=== PATIENT | male | born 1930 | race Caucasian/White ===

== ENCOUNTER 2017-07-02 07:44 | Emergency (ER) | payer MEDICARE, BC ==
[~2017-07-02] VITALS: Ht 177.8 cm; Wt 121.6 kg
[~2017-07-02 07:44] MED LIST: ANTI-FUNGAL12 TOP; ASPIRIN EC325 MG PO; CARTIA XT120 MG/24 PO; FISH OIL1000 MG PO; FLOMAX0.4 M1 PO; HYDROCHLOROT12.5 M1 PO; IRON 100 PLUS PO; LIPITOR20 MG PO; MULT VITAMI1; OCUVITE EYE PO; TYLENOL 8 HR650 MG; ULTRAM50 MG OR; VITAMI16; [UNRECOGNIZED DRUG - OTHER] PO; [UNRECOGNIZED DRUG - OTHER] PO
[2017-07-02] MEDS ORDERED: VITAMIN E400 UNIT PO (08:28)
[2017-07-02] MEDS ORDERED: FERR SULFATE325 MG PO (08:29)
[2017-07-02 09:14] LABS: URINE BILIRUBIN - DIPSTICK NEGATIVE (NEGATIVE); URINE BLOOD DIPSTICK TRACE-LYSED (NEGATIVE); URINE COLOR YELLOW; URINE GLUCOSE - DIPSTICK NEGATIVE (NEGATIVE); URINE KETONE NEGATIVE (NEGATIVE); URINE PROTEIN - DIPSTICK NEGATIVE (NEG-TRACE); URINE UROBILINOGEN - DIPSTICK 0.2 E.U./dL (0.2)
[2017-07-02 09:19] LABS: URINE CLARITY CLOUDY; URINE LEUK ESTERASE LARGE (NEGATIVE); URINE NITRITE - DIPSTICK POSITIVE (Negative)
[2017-07-02 09:20] LABS: URINE BACTERIA MANY hpf; URINE EPITHELIAL CELLS MODERATE EPI/hpf (0-FEW); URINE MUCUS MODERATE hpf (NONE-FEW); URINE RBC 0-2 RBC/hpf (0-5); URINE WBC 20-50 WBC/hpf (0-5)
[2017-07-02] MEDS ORDERED: BACTRIM DS1 TAB PO (09:38)
[2017-07-02 09:48] VITALS: BP 149/65
== END 2017-07-02 09:55 | disposition home or self-care (01) ==
LOC: ED 07:44
PROVIDERS: Family Medicine
PROC: 0T9B70Z Drainage of Bladder with Drainage Device, Via Natural or Artificial Opening (ICD-10-PCS; principal; 2017-07-02)
DX: R33.9 Retention of urine, unspecified (principal); N39.0 Urinary tract infection, site not specified; B96.20 Unspecified Escherichia coli [E. coli] as the cause of diseases classified elsewhere; Z85.46 Personal history of malignant neoplasm of prostate; N48.89 Other specified disorders of penis

== ENCOUNTER 2017-07-07 16:28 | Inpatient (IN) | payer MEDICARE, BC ==
[~2017-07-07] VITALS: Ht 177.8 cm; Wt 113.0 kg
[~2017-07-07 16:28] MED LIST changes: +BACTRIM DS1 TAB PO; +FERR SULFATE325 MG PO; +VITAMIN E400 UNIT PO
[2017-07-07 17:19] LABS: HEMATOCRIT 32.1 % (39.0-50.0); HEMOGLOBIN 10.2 g/dl (14.0-18.0); IMMATURE GRANULOCYTES 0.3 % (0.0-1.0); MEAN CELL VOLUME 88.4 fL CALC (80.0-100.0); MEAN CORPUSCULAR HGB 28.1 pG CALC (26.0-32.0); MEAN CORPUSCULAR HGB CONC 31.8 g/L CALC (32.0-36.0); NEUT# 2.4 thou/uL (1.82-7.42); RED BLOOD COUNT 3.63 mill/uL (4.70-6.10); RED CELL DISTRI WIDTH 14.1 % (11.5-15.5)
[2017-07-07 17:33] LABS: CREATININE 1.5 mg/dL (0.7-1.3); POTASSIUM 4.8 mmol/l (3.5-5.1)
[2017-07-07 17:56] LABS: URINE BLOOD DIPSTICK LARGE (NEGATIVE); URINE COLOR BROWN; URINE GLUCOSE - DIPSTICK NEGATIVE (NEGATIVE); URINE KETONE 15 mg/dL (NEGATIVE); URINE PH 6.5 (4.5-8.0); URINE PROTEIN - DIPSTICK >=300 mg/dL (NEG-TRACE); URINE SPECIFIC GRAVITY 1.025
[2017-07-07 17:58] LABS: URINE BILIRUBIN - DIPSTICK NEGATIVE (NEGATIVE); URINE CLARITY TURBID; URINE LEUK ESTERASE SMALL (NEGATIVE); URINE NITRITE - DIPSTICK POSITIVE (Negative)
[2017-07-07 17:59] LABS: URINE RBC TNTC RBC/hpf (0-5)
[2017-07-07 20:25] LABS: CREATININE 1.4 mg/dL (0.7-1.3)
[2017-07-07 20:30] VITALS: BP 159/84
[2017-07-08] VITALS: BP 105/56
[2017-07-08 04:54] VITALS: BP 147/73
[2017-07-08 06:06] LABS: HEMOGLOBIN 10.3 g/dl (14.0-18.0); MEAN CELL VOLUME 87.9 fL CALC (80.0-100.0); MEAN CORPUSCULAR HGB 28.3 pG CALC (26.0-32.0); MEAN CORPUSCULAR HGB CONC 32.2 g/L CALC (32.0-36.0); RED BLOOD COUNT 3.64 mill/uL (4.70-6.10)
[2017-07-08 06:07] LABS: ANION GAP 14 (6-22 (CALC)); BUN 26 mg/dL (8-23); BUN/CREATININE RATIO 21 (12-20 (CALC)); CARBON DIOXIDE 23 mmol/l (22-30); CHLORIDE 93 mmol/l (95-108); CREATININE 1.3 mg/dL (0.7-1.3); GFR 52 ML/MIN (>=60 (CALC)); GFR FOR AFR.AMER. > 60 ML/MIN (>=60 (CALC)); POTASSIUM 4.7 mmol/l (3.5-5.1); SODIUM 125 mmol/l (137-146)
[2017-07-08 08:40] VITALS: BP 157/88
[2017-07-08 16:00] VITALS: BP 143/77
[2017-07-08 19:10] VITALS: BP 159/97
[2017-07-08 22:28] LABS: ANION GAP 13 (6-22 (CALC)); BUN 23 mg/dL (8-23); BUN/CREATININE RATIO 20 (12-20 (CALC)); CARBON DIOXIDE 28 mmol/l (22-30); CHLORIDE 87 mmol/l (95-108); CREATININE 1.2 mg/dL (0.7-1.3); GFR 57 ML/MIN (>=60 (CALC)); GFR FOR AFR.AMER. > 60 ML/MIN (>=60 (CALC)); POTASSIUM 4.6 mmol/l (3.5-5.1); SODIUM 123 mmol/l (137-146)
[2017-07-09] VITALS: BP 151/86
[2017-07-09 04:35] VITALS: BP 137/81
[2017-07-09 05:50] LABS: HEMATOCRIT 31.9 % (39.0-50.0); HEMOGLOBIN 10.3 g/dl (14.0-18.0); IMMATURE GRANULOCYTES 0.3 % (0.0-1.0); MEAN CELL VOLUME 87.9 fL CALC (80.0-100.0); MEAN CORPUSCULAR HGB 28.4 pG CALC (26.0-32.0); MEAN CORPUSCULAR HGB CONC 32.3 g/L CALC (32.0-36.0); NEUT# 5.16 thou/uL (1.82-7.42); RED BLOOD COUNT 3.63 mill/uL (4.70-6.10); RED CELL DISTRI WIDTH 13.9 % (11.5-15.5)
[2017-07-09 06:00] LABS: ANION GAP 13 (6-22 (CALC)); BUN 24 mg/dL (8-23); BUN/CREATININE RATIO 22 (12-20 (CALC)); CARBON DIOXIDE 27 mmol/l (22-30); CHLORIDE 88 mmol/l (95-108); CREATININE 1.1 mg/dL (0.7-1.3); GFR > 60 ML/MIN (>=60 (CALC)); GFR FOR AFR.AMER. > 60 ML/MIN (>=60 (CALC)); MAGNESIUM 1.9 mg/dL (1.6-2.3); POTASSIUM 4.6 mmol/l (3.5-5.1); SODIUM 124 mmol/l (137-146)
[2017-07-09 08:00] VITALS: BP 129/75
[2017-07-09 11:08] VITALS: BP 133/68
[2017-07-09 14:57] VITALS: BP 131/74
[2017-07-09 20:10] VITALS: BP 139/81
[2017-07-10] VITALS (7 sets, daily range): BP systolic 116–166; BP diastolic 61–88
[2017-07-10 05:14] LABS: HEMATOCRIT 30.8 % (39.0-50.0); HEMOGLOBIN 9.7 g/dl (14.0-18.0); MEAN CELL VOLUME 89.8 fL CALC (80.0-100.0); MEAN CORPUSCULAR HGB 28.3 pG CALC (26.0-32.0); MEAN CORPUSCULAR HGB CONC 31.5 g/L CALC (32.0-36.0); RED BLOOD COUNT 3.43 mill/uL (4.70-6.10); RED CELL DISTRI WIDTH 13.7 % (11.5-15.5)
[2017-07-10 05:34] LABS: ANION GAP 12 (6-22 (CALC)); BUN 23 mg/dL (8-23); BUN/CREATININE RATIO 22 (12-20 (CALC)); CARBON DIOXIDE 29 mmol/l (22-30); CHLORIDE 90 mmol/l (95-108); GFR > 60 ML/MIN (>=60 (CALC)); GFR FOR AFR.AMER. > 60 ML/MIN (>=60 (CALC)); POTASSIUM 4.9 mmol/l (3.5-5.1); SODIUM 126 mmol/l (137-146)
[2017-07-11 00:08] VITALS: BP 133/71
[2017-07-11 04:35] VITALS: BP 139/75
[2017-07-11 05:13] LABS: ANION GAP 12 (6-22 (CALC)); BUN 25 mg/dL (8-23); BUN/CREATININE RATIO 27 (12-20 (CALC)); CARBON DIOXIDE 28 mmol/l (22-30); CHLORIDE 90 mmol/l (95-108); GFR > 60 ML/MIN (>=60 (CALC)); GFR FOR AFR.AMER. > 60 ML/MIN (>=60 (CALC)); POTASSIUM 4.9 mmol/l (3.5-5.1); SODIUM 124 mmol/l (137-146)
[2017-07-11 05:42] LABS: HEMATOCRIT 31.9 % (39.0-50.0); HEMOGLOBIN 10.1 g/dl (14.0-18.0); MEAN CELL VOLUME 89.4 fL CALC (80.0-100.0); MEAN CORPUSCULAR HGB 28.3 pG CALC (26.0-32.0); MEAN CORPUSCULAR HGB CONC 31.7 g/L CALC (32.0-36.0); RED BLOOD COUNT 3.57 mill/uL (4.70-6.10); RED CELL DISTRI WIDTH 13.5 % (11.5-15.5)
[2017-07-11 07:17] VITALS: BP 137/60
[2017-07-11 11:24] VITALS: BP 134/72
[2017-07-11 15:37] VITALS: BP 126/79
[2017-07-11 19:00] VITALS: BP 134/71
[2017-07-12 00:05] VITALS: BP 145/64
[2017-07-12 04:00] VITALS: BP 147/60
[2017-07-12 07:10] LABS: ANION GAP 10 (6-22 (CALC)); BUN 25 mg/dL (8-23); BUN/CREATININE RATIO 24 (12-20 (CALC)); CARBON DIOXIDE 32 mmol/l (22-30); CHLORIDE 89 mmol/l (95-108); CREATININE 1.1 mg/dL (0.7-1.3); GFR > 60 ML/MIN (>=60 (CALC)); GFR FOR AFR.AMER. > 60 ML/MIN (>=60 (CALC)); POTASSIUM 4.6 mmol/l (3.5-5.1); SODIUM 126 mmol/l (137-146)
[2017-07-12 08:48] VITALS: BP 119/65
[2017-07-12 12:13] VITALS: BP 110/51
[2017-07-12 16:08] VITALS: BP 149/72
[2017-07-12 19:00] VITALS: BP 128/66
[2017-07-13 00:20] VITALS: BP 135/61
[2017-07-13 04:30] VITALS: BP 146/65
[2017-07-13 05:18] LABS: HEMATOCRIT 33.4 % (39.0-50.0); HEMOGLOBIN 10.5 g/dl (14.0-18.0); IMMATURE GRANULOCYTES 0.7 % (0.0-1.0); MEAN CORPUSCULAR HGB 28.3 pG CALC (26.0-32.0); MEAN CORPUSCULAR HGB CONC 31.4 g/L CALC (32.0-36.0); NEUT# 3.78 thou/uL (1.82-7.42); RED BLOOD COUNT 3.71 mill/uL (4.70-6.10); RED CELL DISTRI WIDTH 13.8 % (11.5-15.5)
[2017-07-13 05:49] LABS: ALBUMIN 2.9 g/dL (3.2-5.0); BUN 26 mg/dL (8-23); CARBON DIOXIDE 35 mmol/l (22-30); CHLORIDE 89 mmol/l (95-108); GFR > 60 ML/MIN (>=60 (CALC)); GFR FOR AFR.AMER. > 60 ML/MIN (>=60 (CALC)); SODIUM 132 mmol/l (137-146)
[2017-07-13 05:52] LABS: POTASSIUM 4.3 mmol/l (3.5-5.1)
[2017-07-13 07:52] VITALS: BP 127/58
[2017-07-13 11:07] VITALS: BP 141/69
[2017-07-13 15:15] VITALS: BP 110/62
[2017-07-13 18:18] VITALS: BP 136/59
[2017-07-14 00:51] VITALS: BP 119/65
[2017-07-14 05:19] LABS: HEMATOCRIT 33.3 % (39.0-50.0); HEMOGLOBIN 10.4 g/dl (14.0-18.0); MEAN CELL VOLUME 90.5 fL CALC (80.0-100.0); MEAN CORPUSCULAR HGB 28.3 pG CALC (26.0-32.0); MEAN CORPUSCULAR HGB CONC 31.2 g/L CALC (32.0-36.0); RED BLOOD COUNT 3.68 mill/uL (4.70-6.10)
[2017-07-14 05:25] LABS: ALBUMIN 2.7 g/dL (3.2-5.0); BUN 30 mg/dL (8-23); CHLORIDE 87 mmol/l (95-108); CREATININE 1.1 mg/dL (0.7-1.3); GFR > 60 ML/MIN (>=60 (CALC)); GFR FOR AFR.AMER. > 60 ML/MIN (>=60 (CALC)); POTASSIUM 3.8 mmol/l (3.5-5.1); SODIUM 135 mmol/l (137-146)
[2017-07-14 05:34] LABS: CARBON DIOXIDE 41 mmol/l (22-30)
[2017-07-14 06:38] VITALS: BP 133/60
[2017-07-14 07:30] VITALS: BP 124/69
[2017-07-14 11:00] VITALS: BP 111/47
[2017-07-14 16:10] VITALS: BP 119/54
[2017-07-14 19:00] VITALS: BP 105/63
[2017-07-15 00:13] VITALS: BP 133/69
[2017-07-15 04:03] VITALS: BP 136/68
[2017-07-15 05:03] LABS: HEMATOCRIT 34.7 % (39.0-50.0); HEMOGLOBIN 10.7 g/dl (14.0-18.0); MEAN CELL VOLUME 91.1 fL CALC (80.0-100.0); MEAN CORPUSCULAR HGB 28.1 pG CALC (26.0-32.0); MEAN CORPUSCULAR HGB CONC 30.8 g/L CALC (32.0-36.0); RED BLOOD COUNT 3.81 mill/uL (4.70-6.10); RED CELL DISTRI WIDTH 14.2 % (11.5-15.5)
[2017-07-15 05:17] LABS: ALBUMIN 2.8 g/dL (3.2-5.0); BUN 34 mg/dL (8-23); CHLORIDE 86 mmol/l (95-108); CREATININE 1.2 mg/dL (0.7-1.3); GFR 57 ML/MIN (>=60 (CALC)); GFR FOR AFR.AMER. > 60 ML/MIN (>=60 (CALC)); POTASSIUM 4.1 mmol/l (3.5-5.1); SODIUM 137 mmol/l (137-146)
[2017-07-15 05:30] LABS: CARBON DIOXIDE 43 mmol/l (22-30)
[2017-07-15 07:54] VITALS: BP 134/62
[2017-07-15 11:04] VITALS: BP 123/65
[2017-07-15] MEDS ORDERED: DOXYCYCL HYC100 MG PO (12:29)
[2017-07-15] MEDS ORDERED: LASIX 40 MG TAB40 MG PO (12:29)
[2017-07-15] MEDS ORDERED: K-DUR/KLOR-CON20 MEQ PO (12:29)
[2017-07-15] MEDS ORDERED: FLORASTOR250 M1 PO (12:29)
== END 2017-07-15 15:10 | DRG 291 ==
LOC: ED 16:28 → ED-I 17:09 → ED 19:03 → MS2 19:04
PROVIDERS: Family Medicine; Internal Medicine; Internal Medicine Nephrology; Nurse Practitioner Family; ADMIT Internal Medicine; ATTEND Internal Medicine
DX: I13.0 Hypertensive heart and chronic kidney disease with heart failure and stage 1 through stage 4 chronic kidney disease, or unspecified chronic kidney disease (principal); I50.31 Acute diastolic (congestive) heart failure; N17.9 Acute kidney failure, unspecified; L89.312 Pressure ulcer of right buttock, stage 2; E87.3 Alkalosis; L03.115 Cellulitis of right lower limb; I27.20 Pulmonary hypertension, unspecified; L89.322 Pressure ulcer of left buttock, stage 2; E87.1 Hypo-osmolality and hyponatremia; L03.116 Cellulitis of left lower limb; N39.0 Urinary tract infection, site not specified; R31.9 Hematuria, unspecified; I25.10 Atherosclerotic heart disease of native coronary artery without angina pectoris; N18.3 Chronic kidney disease, stage 3 (moderate); I34.0 Nonrheumatic mitral (valve) insufficiency; D63.8 Anemia in other chronic diseases classified elsewhere; E78.5 Hyperlipidemia, unspecified; B96.20 Unspecified Escherichia coli [E. coli] as the cause of diseases classified elsewhere; E66.9 Obesity, unspecified; N40.1 Benign prostatic hyperplasia with lower urinary tract symptoms; R33.8 Other retention of urine; I25.2 Old myocardial infarction; Z85.46 Personal history of malignant neoplasm of prostate; Z92.3 Personal history of irradiation; Z95.5 Presence of coronary angioplasty implant and graft; Z68.38 Body mass index [BMI] 38.0-38.9, adult
CPT/HCPCS: G0378; J1756